=== PATIENT | female | born 1985 | race African-American/Black ===

== ENCOUNTER 2018-08-22 05:58 | Emergency (ER) | payer MEDICAID ==
[~2018-08-22] VITALS: Ht 149.9 cm; Wt 50.0 kg
[2018-08-22] MEDS ORDERED: SUCRALFATE 1 G/10 ML UDC PO SCH (06:45)
[2018-08-22 07:30] VITALS: BP 135/76
[2018-08-22] MEDS ORDERED: VISCOUS LIDOCAINE 2% 15 ML UDC MM ONE (08:45)
== END 2018-08-22 08:45 | disposition left against medical advice (07) ==
LOC: ER 05:58
DX: R07.0 Pain in throat (principal); R11.10 Vomiting, unspecified; F17.200 Nicotine dependence, unspecified, uncomplicated
CPT/HCPCS: 87070; 87430; 99283